=== PATIENT | female | born 1965 | race Caucasian/White ===

== ENCOUNTER → 2021-02-22 | Outpatient (CLI) | payer BC ==
[~2021-02-22] MED LIST: DILTIAZEM 24HR120 M1 PO; ELIQUIS5 MG PO; IBUPROFEN600 MG PO; METFORMIN HCL500 MG PO; METOPROLOL SUCC50 MG PO; NORCO 5-325 TA1 EACH PO; OMEPRAZOLE20 M1 PO; SOTALOL80 MG PO
== END ==
LOC: ECHO 09:00 → NM 09:00 → ECHO 09:28 → NM 10:00
DX: Z01.810 Encounter for preprocedural cardiovascular examination (principal); R06.02 Shortness of breath; I08.1 Rheumatic disorders of both mitral and tricuspid valves
CPT/HCPCS: ECHO; 78452; 93017; 93306; A9502; J2785